=== PATIENT | female | born 1975 | race Caucasian/White ===

== ENCOUNTER 2021-12-29 12:41 | Observation (INO) ==
[2021-12-29] MEDS ORDERED: IOPAMIDOL 100 ML BOTTLE IV ONE (12:42)
--- NOTE | 2021-12-29 12:58 | Emergency Department Note ---
Nausea/Vomiting/Diarrhea HPI General Chief complaint: Nausea/Vomiting/Diarrhea Stated complaint: N/v/d Time Seen by Provider: 12/29/21 12:42 Source: patient Mode of arrival: ambulatory Limitations: no limitations History of Present Illness HPI Narrative: 46-year-old female presents with less than 24 hours of acute nausea/vomiting/diarrhea and sharp intermittent right upper quadrant abdominal pain that started acutely at 9 PM last night. No melena or hematochezia. No hematemesis. Previous surgeries include a cholecystectomy. No previous history of pancreatitis. Last menstrual period was 2 weeks ago. Normal for her. No abnormal vaginal bleeding. She does have an elevated temperature to 100.8 Fahrenheit and she is mildly tachycardic. She has been unable to keep fluids or food down for the last 12 hours. Related Data Home Medications Medication Instructions Recorded Confirmed montelukast 10 mg tablet 10 mg PO tab 04/19/21 04/19/21 Previous Rx's Medication Instructions Recorded fluoxetine 40 mg capsule 40 mg PO QDAY #30 cap 05/14/18 methocarbamol 750 mg tablet 750 mg PO QID #40 tab 10/20/19 (Robaxin-750) gabapentin 100 mg capsule 300 mg PO BID PRN #180 cap 04/19/21 etodolac 400 mg tablet See Rx Instructions .ROUTE 11/28/21 .COMPLEX #60 tablet Allergies Allergy/AdvReac Type Severity Reaction Status Date / Time No Known Drug Allergies Allergy Verified 12/29/21 12:41 Review of Systems ROS ROS Narrative: Narrative: All systems ED: reviewed and negative except as stated. [facility] Narrative Patient History Narrative: Narrative: Medical/Surgical/Family History All Active Problems (Updated 12/29/21 @ 15:05 by Cynthia Hunter PA-C) GERD (gastroesophageal reflux disease) (Chronic) Arthralgia of multiple joints (Acute) Antinuclear factor positive (Chronic) Depression (Chronic) Decreased libido (Chronic) Counseling for travel (Acute) Headache (Acute) Sinusitis, acute (Acute) Rash (Acute) Irritable bowel syndrome (Chronic ~2016) Anxiety (Chronic) Hypertension (Acute) Hair loss (Acute) Hematuria, gross (Acute) Antinuclear factor positive (Acute) Fibromyalgia (Acute) Malrotation of intestine with internal herniation (Acute) Nausea & vomiting (Acute) Diarrhea (Acute) Medical History (Updated 12/29/21 @ 15:05 by Cynthia Hunter PA-C) Abdominal pain Acute bronchitis Antinuclear factor positive Antinuclear factor positive Anxiety Arthralgia of multiple joints Decreased libido Depression Diarrhea recurrent Elevated liver enzymes Fibromyalgia Gastric erosion Gastritis GERD (gastroesophageal reflux disease) Irritable bowel syndrome (~2016) Rash Raynaud's phenomenon Reflux esophagitis Surgical History History of arthroscopic knee surgery Left, Right History of cholecystectomy History of colonoscopy (09/10/15) History of esophagogastroduodenoscopy (EGD) (03/15/16) reflux esophagitis in lower third esophagus, single erosion Family History Unknown Heart disease Hypertension, essential Family/Other Lung cancer Family/Other Lung cancer Mother Pulmonary fibrosis, postinflammatory sarcoidosis Diabetes Social History Smoking Status: Never smoker Alcohol Intake Frequency: holiday/special occasion only Substance Use: does not use Exam Narrative Narrative: General: AOx3, NAD, nontoxic appearing. Pleasant and conversant. HEENT: PERRL, EOMI, normocephalic. Moist mucous membranes. Normal facies and normal dentition. Chest: Symmetric, no pain to palpation Respiratory: Lungs clear to auscultation bilaterally. No respiratory distress. Unlabored breathing. Heart: Regular rate and rhythm, no murmurs/clicks/rubs. Abdomen: Non-tender, Non distended, normal bowel tones. No organomegaly. Extremities: Warm and well perfused. No edema. DP 2+ bilaterally. No venous stasis. Neuro: No focal deficits. Cranial nerves II-XII grossly normal. Skin: Warm dry, no rashes or lesions, no cyanosis. Psych: Normal mood and affect Heme/Lymph: No abnormal bruising General Limitations: no limitations Course Course Course Narrative: 46-year-old female presents with acute nausea, vomiting and diarrhea with previous history of lap cholecystectomy. Reevaluation(s) Reevaluation #1: Obtain CBC, CMP, lactic acid Discussed case with Dr. Gibson and he agrees with obtaining CT scan to rule out possible small bowel obstruction, or other CT of the abdomen pelvis with contrast is pending IV fluids, antiemetics, pain medication (morphine 4 mg IV x1 dose) Enteric stool culture Reevaluation #2: CBC with blood blood cell count of 11,400 CMP with no transaminitis Lipase within normal limits Patient is markedly improved after antiemetics and morphine CT of the abdomen pelvis shows a left paraduodenal hernia, no small bowel obstruction, no bowel wall edema--> Case discussed with Dr. Singh who reviewed the imaging with me and feels the patient is appropriate for observation adm ission and small bowel follow-through. A bed is available and she is being admitted. Vital Signs Vital signs: Vital Signs Temperature 100.8 F H 12/29/21 12:41 Pulse Rate 109 H 12/29/21 12:41 Respiratory Rate 20 12/29/21 12:41 Blood Pressure 164/100 12/29/21 12:41 Pulse Oximetry (%) 98 12/29/21 12:41 Temperature 100.8 F H 12/29/21 12:41 Pulse Rate 102 H 12/29/21 14:45 Respiratory Rate 20 12/29/21 12:41 Blood Pressure 152/85 12/29/21 14:45 Pulse Oximetry (%) 99 12/29/21 14:45 [facility] MDM Narrative Medical decision making narrative: Acute N/V/D Left paraduodenal hernia Patient has been accepted by Dr. Singh for overnight observation admission and small bowel follow-through procedure. Please see his note for further details. Lab Data Result diagrams: 12/29/21 13:14 12/29/21 13:14 Labs: Lab Results 12/29/21 12/29/21 12/29/21 Range/Units 13:14 13:14 13:14 WBC 11.4 H (4.5-11.0) K/mcL RBC 4.24 (3.59-5.38) M/mcL Hgb 13.0 (11.2-15.7) g/dL Hct 38.5 (34.1-44.9) % MCV 90.8 (80.0-100.0) fL MCH 30.7 (26.0-34.0) pg MCHC 33.8 (31.0-36.0) g/dL RDW 12.6 (11.5-14.5) % Plt Count 290 (140-440) K/mcL MPV 9.9 (7.4-10.4) fL Sodium 137 (133-145) mmol/L Potassium 3.5 (3.3-5.1) mmol/L Chloride 101 (96-108) mmol/L Carbon Dioxide 21 L (22-30) mmol/L Anion Gap 15.0 (8.0-16.0) BUN 10 (6-20) mg/dL Creatinine 0.8 (0.6-1.1) mg/dL GFR Calculation 87 Glucose 108 H (70-105) mg/dL Calcium 8.7 (8.6-10.4) mg/dL Total Bilirubin 0.6 (0.1-1.0) mg/dL AST 18 (<32) U/L ALT 31 (<40) U/L Alkaline Phosphatase 73 (39-117) U/L Total Protein 7.1 (5.9-8.4) gm/dL Albumin 4.2 (3.2-5.2) gm/dL Globulin 2.9 (2.2-3.7) gm/dL Albumin/Globulin Ratio 1.4 (1.0-2.3) Lipase 14 (7-60) U/L ED POC Tests ED POC Tests: EDIS - SARS Antigen Negative Discharge Plan Patient/Caregiver Discharge Instructions Pt seen by PROGRAM ADMINISTRATOR/PA only: Yes Clinical Impression: Malrotation of intestine with internal herniation, Nausea & vomiting, Diarrhea Patient Disposition: Still a Patient Follow up with: aSida Rivas, DNP, MANAGER INTERFACE [Primary Care Provider] - Prescriptions: No Action etodolac 400 mg tablet See Rx Instructions .ROUTE .COMPLEX Qty: 60 2RF Dose Instruction: TAKE 1 TABLET BY MOUTH TWICE DAILY NEEDED FOR PAIN Rx Instructions: TAKE 1 TABLET BY MOUTH TWICE DAILY NEEDED FOR PAIN fluoxetine 40 mg capsule 40 mg PO QDAY Qty: 30 12RF methocarbamol [Robaxin-750] 750 mg tablet 750 mg PO QID Qty: 40 0RF montelukast 10 mg tablet 10 mg PO 0RF gabapentin 100 mg capsule 300 mg PO BID PRN (Reason: pain) Qty: 180 5RF
[2021-12-29] MEDS ORDERED: ONDANSETRON 4 MG/2 ML VIAL IV ONE (13:01)
[2021-12-29] MEDS ORDERED: morphine 4 MG/ML VIAL IV ONE (13:16)
[2021-12-29] MEDS ORDERED: 0.9 % SODIUM CHLORIDE 1,000 ML IV ONE (13:25)
[2021-12-29 13:51] LABS: Hematocrit 38.5 % (34.1-44.9); Mean Cell Volume 90.8 fL (80.0-100.0); Mean Corpuscular HGB Conc 33.8 g/dL (31.0-36.0); Mean Platelet Volume 9.9 fL (7.4-10.4); Platelet Count 290 K/mcL (140-440); RBC 4.24 M/mcL (3.59-5.38); Red Cell Distribution Width 12.6 % (11.5-14.5); WBC 11.4 K/mcL (4.5-11.0)
--- NOTE | 2021-12-29 14:09 | Cat Scan Report ---
INDICATION: N/V/D COMPARISON: Previous CT scans dated 05/28/2018 and 06/13/2016 TECHNIQUE: Axial images were obtained through the abdomen and pelvis. Sagittally and coronally reformatted images. 80 mL Isovue 370 injected intravenously. Oral contrast material was not administered FINDINGS: Lung bases:Negative. No pulmonary parenchymal nodule. No pleural fluid or pericardial fluid Liver:Negative. No focal intrahepatic mass. No focal abnormality. Liver contour is smooth. No evidence for cirrhosis Gallbladder, bilary:Previous cholecystectomy. No dilated bile ducts Spleen:No splenomegaly. Normal enhancement of splenic and portal veins. Pancreas:No pancreatic mass. No peripancreatic abnormality Adrenal glands:Negative Kidneys,ureters,bladder:No solid renal mass. No hydronephrosis. No obstructing or nonobstructing calculi. No hydroureter. No ureteral calculus. No bladder stone. No detectable bladder mass. Gastrointestinal:No detectable colonic mass. There is no diverticulitis. Jejunum is prominent and fluid-filled. Jejunum measures approximately 3.6 cm in maximum cross-sectional diameter. Loops of jejunum are in the left upper abdominal quadrant. Findings may indicate left paraduodenal hernia. High-grade obstruction is not present. There is no evidence for closed loop obstruction. There is no bowel ischemia or fluid. This appearance is similar to the appearance on previous examination dated 05/28/2018 Negative stomach and duodenum. No focal abnormality. Appendix: The appendix is negative Vascular:Negative abdominal aorta. Superior mesenteric artery and celiac trunk are normal. Normal opacification of the inferior mesenteric artery Lymphatic:No retroperitoneal or mesenteric adenopathy Mesentery, peritoneum: No free intraperitoneal fluid. No mesenteric or retroperitoneal mass. No intra-abdominal abscess. Reproductive:Uterus is enlarged and anteflexed. There is a 12 mm low-density abnormality in the right myometrium. This may be a small fibroid. No adnexal mass. There is a probable 14 mm left ovarian cyst. Musculoskeletal:No lumbar compression fractures. Sacrum and pelvis are negative. No hip fracture. Degenerative disc disease and facet arthropathy at L5-S1 No abdominal wall or inguinal hernia IMPRESSION: 1. Prominent degenerative in the left upper quadrant. Appearance may represent a chronic or recurrent left paraduodenal hernia 2. Degenerative disc disease and facet arthropathy at L5-S1 3. Probable small fibroid The exam was performed using radiation dose optimization techniques including, but not limited to, automated exposure control, adjustment of the mA and/or kV according to patient size and use of iterative reconstruction technique. Interpreted and Authenticated by: Rudolph Bear 12/29/21
[2021-12-29 14:12] LABS: ALT/SGPT 31 U/L (<40); AST/SGOT 18 U/L (<32); Albumin 4.2 gm/dL (3.2-5.2); Albumin/Globulin Ratio 1.4 (1.0-2.3); Alkaline Phosphatase 73 U/L (39-117); Bilirubin,Total 0.6 mg/dL (0.1-1.0); Blood Urea Nitrogen 10 mg/dL (6-20); Calcium 8.7 mg/dL (8.6-10.4); Carbon Dioxide 21 mmol/L (22-30); Chloride 101 mmol/L (96-108); Globulin 2.9 gm/dL (2.2-3.7); Glomerular Filtration Rate 87; Glucose 108 mg/dL (70-105)
[2021-12-29 15:20] LABS: Eosinophils % (Manual) 2 % (0-7); Lymphocytes % 10 % (15-49); Monocytes % (Manual) 9 % (1-12); Platelet Estimate NORMAL (Normal); RBC Morphology NORMAL (Normal); Segmented Neutrophils % 79 % (38-78)
[2021-12-29 15:31] LABS: Appearance,Urine Slightly Cloudy (Clear); Bilirubin,Urine Small mg/dL (Negative); Color,Urine Yellow; Culture Indicated,Urine No; Glucose,Urine (UA) Negative (Negative); Ketones,Urine 40 mg/dL mg/dL (Negative); Leukocyte Esterase,Urine Negative /uL (Negative); Mucus,Urine FEW /hpf; Nitrate,Urine Negative (Negative); Protein,Urine Negative (Negative); Urine Blood Trace-intact ery/mcL (Negative); Urine RBC 7 /hpf (0-3); Urine Squamous Epithelial Cell 6 /hpf (0-4); Urine WBC < 1 /hpf (0-4); Urobilinogen,Urine Normal
[2021-12-29] MEDS ORDERED: ONDANSETRON 4 MG/2 ML VIAL IV PRN (15:33)
[2021-12-29] MEDS ORDERED: PROMETHAZINE 25 MG/ML VIAL IV PRN (15:33)
--- NOTE | 2021-12-29 15:34 | General Surg History&Physical ---
HPI History of Present Illness Patient information: Note initiated : 12/29/21 at 3:26 pm Service Date, if different from initiated Date: [] Patient: Jenny Vitale a 46 y/o F admitted on for N/v/d. Chief Complaint: [] Chief complaint: Recurrent nausea and vomiting History of present illness: Ms. Vitale is a 46 year old F who awakened early this morning with severe right upper quadrant and epigastric pain with multiple episodes of projectile vomiting. She had emesis every 20 to 30minutes. The pain was crampy in nature and very severe. Because it continued she is seen in the emergency room in severe distress due to nausea and vomiting. She was treated symptomatically and a CT scan of the abdomen was done which had a presumptive reading of a questionable paraduodenal hernia in the left upper quadrant with a jejunal obstruction. Interesting finding is that the proximal duodenum is not significantly dilated. Patient was admitted to observation for further diagnostic studies IV fluids and analgesics. She has not had similar episodes in the past. The radiologist states that she has had similar radiographic findings in the past that were not related to the symptom complex that she has at this time. She has never had any abdominal operative procedures. Review of Systems All systems: reviewed and no additional remarkable complaints except as stated PFSH PFSH All Active Problems (Updated 12/29/21 @ 15:32 by Janine Singh MD) Nausea and vomiting (Acute) GERD (gastroesophageal reflux disease) (Chronic) Arthralgia of multiple joints (Acute) Antinuclear factor positive (Chronic) Depression (Chronic) Decreased libido (Chronic) Counseling for travel (Acute) Headache (Acute) Sinusitis, acute (Acute) Rash (Acute) Irritable bowel syndrome (Chronic ~2016) Anxiety (Chronic) Hypertension (Acute) Hair loss (Acute) Hematuria, gross (Acute) Antinuclear factor positive (Acute) Fibromyalgia (Acute) Malrotation of intestine with internal herniation (Acute) Nausea & vomiting (Acute) Diarrhea (Acute) Medical History (Updated 12/29/21 @ 15:32 by Janine Singh MD) Abdominal pain Acute bronchitis Antinuclear factor positive Antinuclear factor positive Anxiety Arthralgia of multiple joints Decreased libido Depression Diarrhea recurrent Elevated liver enzymes Fibromyalgia Gastric erosion Gastritis GERD (gastroesophageal reflux disease) Irritable bowel syndrome (~2016) Rash Raynaud's phenomenon Reflux esophagitis Surgical History History of arthroscopic knee surgery Left, Right History of cholecystectomy History of colonoscopy (09/10/15) History of esophagogastroduodenoscopy (EGD) (03/15/16) reflux esophagitis in lower third esophagus, single erosion Family History Unknown Heart disease Hypertension, essential Family/Other Lung cancer Family/Other Lung cancer Mother Pulmonary fibrosis, postinflammatory sarcoidosis Diabetes Social History household members: spouse housing: house lives independently: Yes marital status: education level: college occupational status: employed occupation: [employer] pets and animals: Yes pets and animals: dog(s) sexually active: Yes well-balanced diet: daily or most days during the past year weight has: remained stable alcohol intake frequency: holiday/special occasion only substance use type: does not use iron/uatsdin: [employer] seatbelt use: always working smoke detector in home: Yes MEDS/ALLERGIES Home Medications and Allergies Home Medications Medication Instructions Recorded Confirmed Type fluoxetine 40 mg capsule 40 mg PO QDAY #30 cap 05/14/18 12/29/21 Rx methocarbamol 750 mg tablet 750 mg PO QID #40 tab 10/20/19 12/29/21 Rx (Robaxin-750) gabapentin 100 mg capsule 300 mg PO BID PRN #180 cap 04/19/21 12/29/21 Rx montelukast 10 mg tablet 10 mg PO HS tab 04/19/21 12/29/21 History etodolac 400 mg tablet See Rx Instructions .ROUTE 11/28/21 12/29/21 Rx .COMPLEX #60 tablet Allergies Allergy/AdvReac Type Severity Reaction Status Date / Time No Known Drug Allergies Allergy Verified 12/29/21 12:41 Physical Examination Vital Signs Vital signs: Temp Pulse Resp BP Pulse Ox 100.8 F H 102 H 20 152/85 99 12/29/21 12:41 12/29/21 14:45 12/29/21 12:41 12/29/21 14:45 12/29/21 14:45 General physical appearance General physical exam: well developed, well nourished, no distress and no pain Eyes Eye exam: PERRL and normal ocular movement ENT ENT exam: normal mucosa, no hearing loss and no congestion Head Head exam IM: Present atraumatic, normal inspection and normocephalic Neck Neck exam: no masses, no bruits, trachea midline, no lymphadenopathy and no venous distension Cardiovascular Cardiovascular exam IM: Present normal rate and rhythm, RRR, +S1 and +S2; Absent JVD Respiratory Respiratory exam: normal expansion, normal respiratory effort and clear to ausc ultation Abdomen Abdomen: Present soft, non tender and bowel sounds (Normal active bowel sounds); Absent organomegaly Integumentary Integumentary: Present no rash, no growths and no abnormal pigmentation Neurologic Neurologic: Present normal coordination and normal sensation Musculoskeletal Musculoskeletal: Present normal gait and normal posture Psychiatric Psychiatric: Present oriented to time, oriented to person, oriented to place, speech is normal and memory intact Results Labs Result diagrams: 12/30/21 05:18 12/30/21 05:17 Labs: Abnormal lab results 12/29/21 12/29/21 Range/Units 13:14 13:14 WBC 11.4 H (4.5-11.0) K/mcL Seg Neutrophils % 79 H (38-78) % Lymphocytes % 10 L (15-49) % Carbon Dioxide 21 L (22-30) mmol/L Glucose 108 H (70-105) mg/dL Diabetes panel 12/29/21 Range/Units 13:14 Sodium 137 (133-145) mmol/L Potassium 3.5 (3.3-5.1) mmol/L Chloride 101 (96-108) mmol/L Carbon Dioxide 21 L (22-30) mmol/L BUN 10 (6-20) mg/dL Creatinine 0.8 (0.6-1.1) mg/dL Glucose 108 H (70-105) mg/dL Calcium 8.7 (8.6-10.4) mg/dL AST 18 (<32) U/L ALT 31 (<40) U/L Alkaline Phosphatase 73 (39-117) U/L Total Protein 7.1 (5.9-8.4) gm/dL Albumin 4.2 (3.2-5.2) gm/dL Calcium panel 12/29/21 Range/Units 13:14 Calcium 8.7 (8.6-10.4) mg/dL Albumin 4.2 (3.2-5.2) gm/dL Pituitary panel 12/29/21 Range/Units 13:14 Sodium 137 (133-145) mmol/L Potassium 3.5 (3.3-5.1) mmol/L Chloride 101 (96-108) mmol/L Carbon Dioxide 21 L (22-30) mmol/L BUN 10 (6-20) mg/dL Creatinine 0.8 (0.6-1.1) mg/dL Glucose 108 H (70-105) mg/dL Calcium 8.7 (8.6-10.4) mg/dL Adrenal panel 12/29/21 Range/Units 13:14 Sodium 137 (133-145) mmol/L Potassium 3.5 (3.3-5.1) mmol/L Chloride 101 (96-108) mmol/L Carbon Dioxide 21 L (22-30) mmol/L BUN 10 (6-20) mg/dL Creatinine 0.8 (0.6-1.1) mg/dL Glucose 108 H (70-105) mg/dL Calcium 8.7 (8.6-10.4) mg/dL Total Bilirubin 0.6 (0.1-1.0) mg/dL AST 18 (<32) U/L ALT 31 (<40) U/L Alkaline Phosphatase 73 (39-117) U/L Total Protein 7.1 (5.9-8.4) gm/dL Albumin 4.2 (3.2-5.2) gm/dL All other labs normal. A/P Assessment and plan (1) Nausea and vomiting: Status: Acute (2) GERD (gastroesophageal reflux disease): Status: Chronic (3) Irritable bowel syndrome: Status: Chronic Qualifiers: Irritable bowel syndrome type: with diarrhea Qualified Code(s): K58.0 - Irritable bowel syndrome with diarrhea (4) Hypertension: Status: Acute Qualifiers: Hypertension type: essential hypertension Qualified Code(s): I10 - Essential (primary) hypertension Narrative A/P Narrative: IV hydration Metoclopramide 10 mg IV every 6 hours Small bowel follow-through in the morning Time Spent With Patient Time: Total time spent is greater than 50% in coordination of care (as documented) at patient's floor/unit and/or counseling patient:
[2021-12-29] MEDS ORDERED: DIATRIZOATE MEGLU/DIATRIZO SOD 120 ML BOTTLE PO ONE (16:02)
[2021-12-29] MEDS ORDERED: METOCLOPRAMIDE 10 MG/2 ML VIAL IV SCH (18:00)
[2021-12-29] MEDS: PANTOPRAZOLE 40 MG VIAL IV SCH (18:38)
[2021-12-29] MEDS: 0.9 % SODIUM CHLORIDE 1,000 ML IV SCH ×2 (18:38→22:43)
[2021-12-29] MEDS: ACETAMINOPHEN 1,000 MG/100 ML BAG IV PRN (19:37)
[2021-12-29] MEDS ORDERED: diphenhydrAMINE 50 MG/ML VIAL IV ONE (19:53)
[2021-12-29] MEDS ORDERED: diphenhydrAMINE 50 MG/ML VIAL ONE (20:05)
[2021-12-29] MEDS ORDERED: SENNOSIDES 1 TABLET PO SCH (21:00)
[2021-12-29] MEDS: 0.9 % SODIUM CHLORIDE 10 ML SYRINGE IV SCH (22:43)
[2021-12-29] MEDS: DOCUSATE SODIUM 100 MG CAPSULE PO SCH (22:43)
[2021-12-30] MEDS: ACETAMINOPHEN 1,000 MG/100 ML BAG IV PRN ×2 (01:33→08:04)
[2021-12-30] MEDS: 0.9 % SODIUM CHLORIDE 1,000 ML IV SCH ×3 (01:34→10:53)
[2021-12-30] MEDS: 0.9 % SODIUM CHLORIDE 10 ML SYRINGE IV SCH ×2 (04:42→12:04)
[2021-12-30 06:51] LABS: Basophils # (Auto) 0.02 K/mcL (0.00-0.30); Basophils % (Auto) 0.4 % (0.0-2.0); Eosinophils # (Auto) 0.06 K/mcL (0.00-0.70); Eosinophils % (Auto) 1.1 % (0.0-7.0); Hemoglobin 11.1 g/dL (11.2-15.7); Lymphocytes # (Auto) 1.31 K/mcL (1.50-4.80); Lymphocytes % (Auto) 23.8 % (15.5-49.0); Mean Cell Volume 93.8 fL (80.0-100.0); Mean Corpuscular HGB Conc 31.7 g/dL (31.0-36.0); Mean Platelet Volume 9.9 fL (7.4-10.4); Monocytes # (Auto) 0.58 K/mcL (0.10-0.90); Monocytes % (Auto) 10.5 % (1.0-12.0); Neutrophils % (Auto) 64.2 % (38.0-78.0); Platelet Count 220 K/mcL (140-440); RBC 3.73 M/mcL (3.59-5.38); Red Cell Distribution Width 12.6 % (11.5-14.5); WBC 5.5 K/mcL (4.5-11.0)
[2021-12-30 06:54] LABS: ALT/SGPT 23 U/L (<40); AST/SGOT 15 U/L (<32); Albumin 3.6 gm/dL (3.2-5.2); Albumin/Globulin Ratio 1.6 (1.0-2.3); Alkaline Phosphatase 60 U/L (39-117); Bilirubin,Direct < 0.2 mg/dL (0-0.3); Bilirubin,Total 0.4 mg/dL (0.1-1.0); Blood Urea Nitrogen 5 mg/dL (6-20); Calcium 7.6 mg/dL (8.6-10.4); Carbon Dioxide 25 mmol/L (22-30); Chloride 108 mmol/L (96-108); Globulin 2.3 gm/dL (2.2-3.7); Glomerular Filtration Rate 103; Glucose 99 mg/dL (70-105); Lactate Dehydrogenase 153 U/L (135-225); Phosphorous 2.9 mg/dL (2.5-4.5); Triglycerides 127 mg/dL (<150); Uric Acid 2.8 mg/dL (2.5-8.0)
[2021-12-30] MEDS: DOCUSATE SODIUM 100 MG CAPSULE PO SCH (07:00)
[2021-12-30] MEDS: PANTOPRAZOLE 40 MG VIAL IV SCH (07:00)
[2021-12-30] MEDS ORDERED: BUTALB/ACETAMINOPHEN/CAFFEINE 1 TABLET PO PRN (08:44)
--- NOTE | 2021-12-30 11:12 | XRay Report ---
INDICATION: Follow-up with small bowel obstruction TECHNIQUE: Routine small bowel study with water-soluble contrast material COMPARISON: Previous CT scan dated 12/29/2021 FINDINGS: Stomach is not dilated. Duodenum is normal. Jejunum and ileum are normal. There is no dilatation. No evidence for partial mechanical small bowel obstruction. Previous CT scan demonstrated some jejunal dilatation in the left upper quadrant. This is not identified on present examination. Small bowel study is normal IMPRESSION: 1. Normal small bowel study with water-soluble contrast material 2. No significantly dilated jejunum. No evidence for partial mechanical small bowel obstruction Interpreted and Authenticated by: Rudolph Bear 12/30/21
--- NOTE | 2021-12-30 13:17 | Discharge Summary ---
Discharge Provider Provider Patient information: Note initiated : 12/30/21 at 1:09 pm Service Date, if different from initiated Date: [] Patient: Jenny Vitale 46 y/o F admitted on 12/29/21 for N/v/d. Chief Complaint: [] Date of admission: 12/29/21 16:01 Discharge date: 12/30/21 Primary care physician: Saida Rivas Admitting clinician: Janine Singh Consults: 12/29/21 14:31 Consult to Physician [CONS] Stat Comment: Consulting Provider: Janine Singh Reason For Exam: Physician to Consult Attending physician on discharge: Janine Singh Discharging clinician: Janine Singh COURSE Hospital Course Hospital course: 46-year-old female who awakened on the morning of admission with severe right upper quadrant and epigastric pain followed by multiple episodes of projectile vomiting. She had episodes of emesis every 30minutes. She was seen in the emergency room and treated symptomatically. CT of the abdomen showed a pr esumptive reading of a questionable paraduodenal hernia in the left upper quadrant with a jejunal obstruction. Interesting finding however is that the proximal duodenum was not significantly dilated. As she was admitted started on IV fluids and was given metoclopramide. She had extrapyramidal muscular twitches with nervousness after the metoclopramide. This was treated with diphenhydramine with immediate resolution of the symptoms. Patient had upper GI with small bowel follow-through which is totally normal. The contrast courses easily through her small bowel and at this time there is no small bowel dilation or transition points. She is totally asymptomatic and is tolerating liquids without difficulty. Patient is stable for discharge home. Discharge diagnosis: Recurrent abdominal pain Secondary discharge diagnosis: Episodic nausea and vomiting Hypertension Irritable bowel syndrome Gastroesophageal reflux disease Reason for admission: Recurrent nausea and vomiting Procedures: None Pertinent studies/significant findings: CT of abdomen and pelvis with IV contrast Upper GI with small bowel follow-through Complications: Adverse reaction to metoclopramide Time Spent with Patient Time attestation: Total time spent providing and/or coordinating discharge services: Physical Examination Vital Signs Vital signs: Temp Pulse Resp BP Pulse Ox 97.6 F 81 20 132/83 99 12/30/21 10:58 12/30/21 10:58 12/30/21 10:58 12/30/21 10:58 12/30/21 10:58 General physical appearance General physical exam: well developed, well nourished, no distress, no pain and obese Eyes Eye exam: PERRL and normal ocular movement ENT ENT exam: normal mucosa, no hearing loss and no congestion Head Head exam IM: Present atraumatic, normal inspection and normocephalic Neck Neck exam: no masses, no bruits, trachea midline, no lymphadenopathy and no venous distension Cardiovascular Cardiovascular exam IM: Present normal rate and rhythm, RRR, +S1 and +S2; Absent JVD Respiratory Respiratory exam: normal expansion, normal respiratory effort and clear to auscultation Abdomen Abdomen: Present soft, non tender and bowel sounds; Absent tender Integumentary Integumentary: Present no rash and no growths Neurologic Neurologic: Present normal coordination and normal sensation Musculoskeletal Musculoskeletal: Present normal gait Psychiatric Psychiatric: Present oriented to time, oriented to person, oriented to place, speech is normal and memory intact Discharge Plan Patient/Caregiver Discharge Instructions Activity: increase activity as tolerated Diet: Regular Diet Instructions: Irritable Bowel Syndrome (DC) Prescriptions: No Action etodolac 400 mg tablet See Rx Instructions .ROUTE .COMPLEX Qty: 60 2RF Dose Instruction: TAKE 1 TABLET BY MOUTH TWICE DAILY NEEDED FOR PAIN Rx Instructions: TAKE 1 TABLET BY MOUTH TWICE DAILY NEEDED FOR PAIN fluoxetine 40 mg capsule 40 mg PO QDAY Qty: 30 12RF methocarbamol [Robaxin-750] 750 mg tablet 750 mg PO QID Qty: 40 0RF montelukast 10 mg tablet 10 mg PO HS 0RF gabapentin 100 mg capsule 300 mg PO BID PRN (Reason: pain) Qty: 180 5RF Follow Up Plan Follow up with: Saida Rivas DNP, REGISTERED MASSAGE THERAPIST [Primary Care Provider] - (as needed.) Patient Disposition: Home, Self-Care Prognosis: Good Rehab Potential: Good I certify that the patient requires SNF services: No Overall status at discharge: patient is back to baseline Discharge Orders: Discharge Order (Routine); Ordered 12/30/21 Ordered By: Janine Singh Pending Pending Pending: Resuscitation Status Resuscitate (Full Code) Diet Clear Liquid Diet Start Blanca Dec 29 1536 Acetaminophen/Butalbital/Caffeine (Butalb/Acetaminophen/Caffeine 1 Tablet) 2 tab PO Q4HP PRN PRN Reason: Headache Last Admin: 12/30/21 08:51 Dose: 2 tab Documented by: GERMAINE Docusate Sodium (Docusate Sodium 100 Mg Capsule) 100 mg PO BID [facility] Last Admin: 12/30/21 07:00 Dose: Not Given Documented by: Admin: 12/29/21 22:43 Dose: Not Given Documented by: CLOTILDE Sodium Chloride (Sodium Chloride 0.9%) 1,000 mls @ 150 mls/hr IV .Q6H40M [facility] Last Admin: 12/30/21 10:53 Dose: 150 mls/hr Documented by: Infusion: 12/30/21 08:15 Dose: 150 mls/hr Documented by: Admin: 12/30/21 07:00 Dose: Not Given Documented by: Admin: 12/30/21 01:34 Dose: 150 mls/hr Documented by: Infusion: 12/30/21 01:19 Dose: 150 mls/hr Documented by: Admin: 12/29/21 22:43 Dose: Not Given Documented by: Admin: 12/29/21 18:38 Dose: 150 mls/hr Documented by: ROSINA Acetaminophen (Ofirmev) 1,000 mg in 100 mls @ 200 mls/hr IV Q6HP PRN; Protocol PRN Reason: Per Pain Protocol/Fever > 101 Last Infusion: 12/30/21 08:35 Dose: 0 mls/hr Documented by: Admin: 12/30/21 08:04 Dose: 200 mls/hr Documented by: Infusion: 12/30/21 02:42 Dose: 0 mls/hr Documented by: Admin: 12/30/21 01:33 Dose: 200 mls/hr Documented by: Infusion: 12/29/21 20:44 Dose: 0 mls/hr Documented by: Admin: 12/29/21 19:37 Dose: 200 mls/hr Documented by: CLOTILDE Pantoprazole Sodium (Pantoprazole 40 Mg Vial) 40 mg IV BIDAC [facility] Last Admin: 12/30/21 07:00 Dose: 40 mg Documented by: Admin: 12/29/21 18:38 Dose: 40 mg Documented by: ROSINA Senna (Sennosides 1 Tablet) 2 tab PO HS [facility] Last Admin: 12/29/21 22:43 Dose: Not Given Documented by: CLOTILDE Sodium Chloride (0.9 % Sodium Chloride 10 Ml Syringe) 10 ml IV Q8 [facility]IRAL Last Admin: 12/30/21 12:04 Dose: Not Given Documented by: Admin: 12/30/21 04:42 Dose: Not Given Documented by: Admin: 12/29/21 22:43 Dose: Not Given Documented by: CLOTILDE Shift Summary 12/30/21 05:10 Shift Summary by Rosa Vu Primary Diagnosis: N/V, abd pain Registration Status: OBS Day of Hospitalization: admit 12/29 Pertinent Medical Dx/Issues (may be more than one): GERD, depression, headache, IBS, anxiety Interventions (O2, wounds, diuresis, etc): Vital Signs with Trends: VSS on RA Meds (abo, pain, BP, etc): per eMAR; pt developed reaction to Reglan, physician was noticed, Reglan was discontinued; gave Ofirmev x2 for headache Lines/Tubes: IV to right AC, 0.9NS running @150ml/hr Oxygen needs (home use vs. current use): RA, no oxygen needed at home Lab/Rad results: WBC 11.[address]: "1. Prominent degenerative in the left upper quadrant. Appearance may represent a chronic or recurrent left paraduodenal hernia 2. Degenerative disc disease and facet arthropathy at L5- S1 3. Probable small fibroid" Neuro: A&Ox4, use call light appropriately Date of last BM: 12/30, loose liquid Elimination: per bathroom Recommendations/questions for MD (ERENDIRA Turner? ERENDIRA SCHILLING? PICC needed?): Activity: independent in room Expected date of discharge: TBD Discharge Plan (needs, disposition, etc): TBD Initialized on 12/30/21 05:10 - END OF NOTE
== END 2021-12-30 14:15 | disposition home or self-care (01) ==
LOC: MEDSUR 12:41 → ED 12:41 → MEDSUR 14:01
PROVIDERS: ADMIT Family Medicine Adult Medicine; ATTEND Family Medicine Adult Medicine